=== PATIENT | female | born 1970 | race Caucasian/White ===

== ENCOUNTER → 2023-11-09 14:51 | Outpatient (REF) | payer OTHER, SELFPAY | LOC: HWRAD 14:51 | PROVIDERS: ATTENDING PHYSICIAN Nurse Practitioner Adult Health; FAMILY PHYSICIAN Family Medicine | DX: Z12.31 Encounter for screening mammogram for malignant neoplasm of breast (principal); N95.0 Postmenopausal bleeding | CPT/HCPCS: 76830; 76856; 77063; 77067 ==

== ENCOUNTER → 2025-04-10 07:43 | Outpatient (REF) | payer OTHER, SELFPAY | LOC: HWRAD 07:43 | PROVIDERS: ATTENDING PHYSICIAN Nurse Practitioner Adult Health; FAMILY PHYSICIAN Family Medicine | DX: N95.0 Postmenopausal bleeding (principal) | CPT/HCPCS: 76830; 76856 ==

== ENCOUNTER → 2025-05-09 08:05 | Outpatient (REF) | payer OTHER, SELFPAY | LOC: HWWDC 08:05 | PROVIDERS: ATTENDING PHYSICIAN Nurse Practitioner Adult Health; FAMILY PHYSICIAN Family Medicine | DX: Z12.31 Encounter for screening mammogram for malignant neoplasm of breast (principal) | CPT/HCPCS: 77063; 77067 ==